=== PATIENT | male | born 1975 | race Caucasian/White ===

== ENCOUNTER 2024-08-20 17:39 | Emergency (ER) | payer MEDICAID ==
[~2024-08-20] VITALS: Ht 182.9 cm; Wt 92.5 kg
[2024-08-20 18:56] LABS: BASOPHILS # (AUTO) 0.1 K/uL (0.0-0.2); BASOPHILS % (AUTO) 0.8 % (0.0-2.0); EOSINOPHILS # (AUTO) 0.9 K/uL (0.0-0.7); EOSINOPHILS % (AUTO) 8.9 % (0.0-6.0); HEMATOCRIT 45 % (39-51); HEMOGLOBIN 15.1 g/dL (13.5-17.5); LYMPHOCYTES # (AUTO) 2.5 K/uL (0.8-4.8); LYMPHOCYTES % (AUTO) 24.1 % (20.0-44.0); MEAN CORPUSCULAR HEMOGLOBIN 29 PG (26.0-33.0); MEAN CORPUSCULAR HGB CONC 34 g/dl (31.0-36.0); MEAN CORPUSCULAR VOLUME 84 fL (80-96); MONOCYTES # (AUTO) 0.7 K/uL (0.1-1.30); MONOCYTES % (AUTO) 6.8 % (2.0-12.0); NEUTROPHILS # (AUTO) 6.1 K/uL (1.8-8.9); NEUTROPHILS % (AUTO) 59.4 % (43.0-81.0); PLATELET COUNT (AUTO) 310 K/uL (150-450); RED CELL DISTRIBUTION WIDTH 13.4 % (11.5-15.0); WHITE BLOOD COUNT (AUTO) 10.3 K/uL (4.3-11.0)
[2024-08-20 19:39] LABS: D-DIMER 0.32 mg/L(FEU (0.17-0.50); INR 0.94 (0.91-1.10)
[2024-08-20] MEDS: AMLODIPINE BESYLATE 5 MG TABLET PO ONE (19:39)
[2024-08-20 19:48] LABS: CALCIUM, SERUM 8.9 mg/dL (8.5-10.1); POTASSIUM 4.3 mmol/L (3.5-5.1)
[2024-08-20] MEDS ORDERED: AMLO-212 PO (19:53)
[2024-08-20 21:07] VITALS: BP 150/85; TEMP 97.7; O2SAT 97
== END 2024-08-20 21:07 | disposition home or self-care (01) ==
LOC: ER 17:46
DX: I10 Essential (primary) hypertension (principal); I44.5 Left posterior fascicular block; R06.02 Shortness of breath
CPT/HCPCS: 36415; 71045-TC; 80048-TC; 83880; 84484-TC; 85025-TC; 85378-TC; 85610-TC